=== PATIENT | female | born 1955 | race Caucasian/White ===

== ENCOUNTER 2016-10-19 20:44 | Emergency (ER) | payer BC, OTHER ==
[2016-10-19] MEDS ORDERED: Sodium Chloride 0.9% 1,000 ML IV ONE (21:51)
[2016-10-19 22:49] LABS: SODIUM,NA 136 mmol/L (135-145)
[2016-10-19 22:50] LABS: CHLORIDE,CL 103 mmol/L (101-111)
--- NOTE | 2016-10-20 00:02 | EDM.PDOC ---
ED HPI GENERAL MEDICAL PROBLEM - General Chief Complaint: General Stated Complaint: ACHY,CHILLS, [id number] Time Seen by Provider: 10/19/16 22:39 Source of Information: Reports: Patient History Limitations: Reports: No Limitations - History of Present Illness INITIAL COMMENTS - FREE TEXT/NARRATIVE: upper body feels cold and achy today, has felt this way when started on blood thinners, has hx kidney disease . Blood thinners to prevent CCVA Quality: Reports: Ache, Stabbing, Throbbing Improves with: Reports: None Worsens with: Reports: None Associated Symptoms: Denies: Cough, Headaches, Loss of Appetite, Nausea/Vomiting Chest Pain Score (Numeric/FACES): 6 - Related Data Allergies Allergy/AdvReac Type Severity Reaction Status Date / Time No Known Allergies Allergy Verified 10/19/16 21:16 Home Meds: Home Meds Cholecalciferol (Vitamin D3) [D3-2000] 2,000 units PO ASDIRECTED 10/19/16 [ History] Ezetimibe [Zetia] 5 mg PO DAILY 10/19/16 [History] Levothyroxine [Synthroid] 50 mcg PO DAILY 10/19/16 [History] Lisinopril [Zestril] 20 mg PO DAILY 10/19/16 [History] Mycophenolate Mofetil [Cellcept] 1,000 mg PO BID 10/19/16 [History] Warfarin [Coumadin] 5 mg PO DAILY 10/19/16 [History] atorvaSTATin [Lipitor] 40 mg PO DAILY 10/19/16 [History] Past Medical History HEENT History: Reports: Cataract Cardiovascular History: Reports: High Cholesterol, Hypertension Genitourinary History: Reports: UTI, Recurrent Other Genitourinary History: Kidney disease. 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 ED EXAM, GENERAL - Physical Exam Exam: See Below Exam Limited By: No Limitations General Appearance: Alert, No Apparent Distress Ears: Normal External Exam, Normal TMs Nose: Normal Inspection Throat/Mouth: Normal Oropharynx Head: Atraumatic, Normocephalic Neck: Normal Inspection, Supple, Non-Tender, Limited Range of Motion Respiratory/Chest: No Respiratory Distress, Lungs Clear, No Accessory Muscle Use , Respiratory Distress Cardiovascular: Normal Peripheral Pulses, Regular Rate, Rhythm, JVD GI/Abdominal: Normal Bowel Sounds (Female) Exam: Normal External Exam Rectal (Female) Exam: Normal Exam Back Exam: Normal Inspection Extremities: Normal Inspection Neurological: Alert Psychiatric: Normal Affect Skin Exam: Warm, Dry, Intact, Normal Color, No Rash Course - Vital Signs Last Recorded V/S: Last Vital Signs Temp 100.2 F 10/20/16 00:20 Pulse 78 10/20/16 00:20 Resp 14 10/20/16 00:20 BP 128/60 10/20/16 00:20 Pulse Ox 95 10/20/16 00:20 - Orders/Labs/Meds Labs: Laboratory Tests 10/19/16 10/19/16 10/19/16 Range/Units 21:30 21:50 21:50 WBC 8.1 (5.0-10.0) 10^3/uL RBC 4.14 L (4.2-5.4) 10^6/uL Hgb 12.9 (12.0-16.0) g/dL Hct 37.8 (37.0-47.0) % MCV 91.3 (80-100) fL MCH 31.2 (27.0-34.0) pg MCHC 34.1 (33.0-35.0) g/dL Plt Count 199 (150-450) 10^3/uL Neut % (Auto) 85.6 H (42.2-75.2) % Lymph % (Auto) 6.1 L (20.5-50.1) % Lamb % (Auto) 7.1 (2-8) % Eos % (Auto) 1.0 (1.0-3.0) % Baso % (Auto) 0.2 (0.0-1.0) % PT 12.5 H (9.0-12.0) SEC INR 1.2 (0.9-1.2) Sodium (135-145) mmol/L Potassium (3.6-5.0) mmol/L Chloride (101-111) mmol/L Carbon Dioxide (21.0-31.0) mmol/L Anion Gap BUN (7-18) mg/dL Creatinine (0.6-1.3) mg/dL Est Cr Clr Drug Dosing mL/min Estimated GFR (MDRD) BUN/Creatinine Ratio Glucose (74-105) mg/dL Calcium (8.4-10.2) mg/dl Total Bilirubin (0.2-1.0) mg/dL AST (10-42) IU/L ALT (10-60) IU/L Alkaline Phosphatase (42-121) IU/L Troponin I (0.00-0.02) ng/ml C-Reactive Protein (0.0-1.3) mg/dL Total Protein (6.7-8.2) g/dl Albumin (3.2-5.5) g/dl Globulin Albumin/Globulin Ratio Urine Color Yellow (YELLOW) Urine Appearance Slightly cloudy (CLEAR) Urine pH 5.5 (5.0-9.0) Ur Specific [place] 1.010 (1.005-1.030) Urine Protein 100 H (NEGATIVE) Urine Glucose (UA) Negative (NEGATIVE) Urine Ketones Negative (NEGATIVE) Urine Occult Blood Trace-lysed H (NEGATIVE) Urine Nitrite Negative (NEGATIVE) Urine Bilirubin Negative (NEGATIVE) Urine Urobilinogen 0.2 (0.2-1.0) mg/dL Ur Leukocyte Esterase Negative (NEGATIVE) Urine RBC 0-5 /HPF Urine WBC 0-5 (0-5/HPF) /HPF Ur Epithelial Cells Rare /HPF Amorphous Sediment Rare (0/HPF) /HPF Urine Bacteria Rare (0-FEW/HPF) /HPF 10/19/16 10/19/16 Range/Units 21:50 21:50 WBC (5.0-10.0) 10^3/uL RBC (4.2-5.4) 10^6/uL Hgb (12.0-16.0) g/dL Hct (37.0-47.0) % MCV (80-100) fL MCH (27.0-34.0) pg MCHC (33.0-35.0) g/dL Plt Count (150-450) 10^3/uL Neut % (Auto) (42.2-75.2) % Lymph % (Auto) (20.5-50.1) % Lamb % (Auto) (2-8) % Eos % (Auto) (1.0-3.0) % Baso % (Auto) (0.0-1.0) % PT (9.0-12.0) SEC INR (0.9-1.2) Sodium 136 (135-145) mmol/L Potassium 3.3 L (3.6-5.0) mmol/L Chloride 103 (101-111) mmol/L Carbon Dioxide 23.0 (21.0-31.0) mmol/L Anion Gap 13.3 BUN 13 (7-18) mg/dL Creatinine 0.6 (0.6-1.3) mg/dL Est Cr Clr Drug Dosing 82.87 mL/min Estimated GFR (MDRD) > 60 BUN/Creatinine Ratio 21.66 Glucose 155 H (74-105) mg/dL Calcium 8.4 (8.4-10.2) mg/dl Total Bilirubin 1.3 H (0.2-1.0) mg/dL AST 26 (10-42) IU/L ALT 21 (10-60) IU/L Alkaline Phosphatase 61 (42-121) IU/L Troponin I < 0.02 (0.00-0.02) ng/ml C-Reactive Protein 1.0 (0.0-1.3) mg/dL Total Protein 5.9 L (6.7-8.2) g/dl Albumin 2.9 L (3.2-5.5) g/dl Globulin 3.0 Albumin/Globulin Ratio 0.97 Urine Color (YELLOW) Urine Appearance (CLEAR) Urine pH (5.0-9.0) Ur Specific [place] (1.005-1.030) Urine Protein (NEGATIVE) Urine Glucose (UA) (NEGATIVE) Urine Ketones (NEGATIVE) Urine Occult Blood (NEGATIVE) Urine Nitrite (NEGATIVE) Urine Bilirubin (NEGATIVE) Urine Urobilinogen (0.2-1.0) mg/dL Ur Leukocyte Esterase (NEGATIVE) Urine RBC /HPF Urine WBC (0-5/HPF) /HPF Ur Epithelial Cells /HPF Amorphous Sediment (0/HPF) /HPF Urine Bacteria (0-FEW/HPF) /HPF Meds: Medications Discontinued Medications Generic Name Dose Route Start Last Admin Trade Name Freq PRN Reason Stop Dose Admin Sodium Chloride 1,000 mls @ 999 mls/hr 10/19/16 21:51 10/19/16 21:53 Normal Saline IV 10/19/16 22:51 999 mls/hr .BOLUS ONE Administration Potassium Chloride Confirm 10/20/16 00:24 10/20/16 00:28 Klor-Con 10 Administered 10/20/16 00:25 Not Given Dose 20 meq .ROUTE .STK-MED ONE Departure - Departure Time of Disposition: 00:11 Disposition: Home, Self-Care 01 Condition: Good Clinical Impression: Myalgia, Hypokalemia, Subtherapeutic anticoagulation - Discharge Information Instructions: Hypokalemia, Muscle Cramps and Spasms Referrals: Elvin Gray MD [Primary Care Provider] - Forms: ED Department Discharge Additional Instructions: potassium 10Meq tonight and in am Fluids Additional 5 mg Coumadin tonight recheck INR in 2-3 days
[2016-10-20 00:21] VITALS: BP 128/60
[2016-10-20] MEDS ORDERED: Potassium Chloride 10 MEQ Tab.ER ONE (00:24)
[2016-10-20] MEDS ORDERED: Potassium Chloride 10 MEQ Tab.ER PO ONE (00:24)
== END 2016-10-20 00:33 | disposition home or self-care (01) ==
LOC: DL.ED 20:44
DX: M79.1 Myalgia (principal); E87.6 Hypokalemia; R79.1 Abnormal coagulation profile; E78.00 Pure hypercholesterolemia, unspecified; I10 Essential (primary) hypertension; N28.9 Disorder of kidney and ureter, unspecified; M79.7 Fibromyalgia; E03.9 Hypothyroidism, unspecified; Z79.01 Long term (current) use of anticoagulants; Z79.899 Other long term (current) drug therapy
CPT/HCPCS: 36415; 71010; 80053; 81001; 84484; 85025; 85610; 86140; 96365; 99284; J7030; A9270-GY

== ENCOUNTER 2018-07-04 15:20 | Emergency (ER) | payer BC ==
[2018-07-04 15:52] VITALS: BP 132/67
[2018-07-04 16:39] LABS: ANION GAP 8.5; CHLORIDE,CL 107 mmol/L (101-111); SODIUM,NA 137 mmol/L (135-145)
--- NOTE | 2018-07-04 16:44 | EDM.PDOC ---
<BulmaroMargarita Angel - Last Filed: 07/04/18 17:39> ED HPI GENERAL MEDICAL PROBLEM - General Chief Complaint: PASTRY COOK HELPER Problem Stated Complaint: BLEEDING [id number] Time Seen by Provider: 07/04/18 16:00 Source of Information: Reports: Patient, RN, RN Notes Reviewed - History of Present Illness INITIAL COMMENTS - FREE TEXT/NARRATIVE: Patient presents to the Emergency department with complaints of vaginal bleeding. She told her oncologist that she was having bleeding and was told to come to the emergency room. She has been having spotting for 3 weeks. She is certain the bleeding source is vaginally. She fills about half of a panty liner throughout a day. She has sharp lower abdomen pain when she is active and walking more that goes away after resting. She has a history of breast cancer and had radiation and lumpectomy in August 2016. She states she is cancer free. She takes Tamoxifen daily. She went throughout menopause at age 40. She has not had vaginal bleeding before 3 weeks ago. Last August she had a pap smear in the clinic and states it was insufficient sample. She was also told that her bladder has dropped. She has not had any bladder procedures. She has difficulty emptying her bladder. She denies urgency, frequency. She has chronic kidney disease and sees Dr. Vernon [facility]. Duration: Week(s): (3) Location: Reports: Abdomen (low abdomen pain) - Related Data Allergies Allergy/AdvReac Type Severity Reaction Status Date / Time aliskiren [From Tekturna] Allergy Other Verified 07/04/18 15:57 formaldehyde Allergy Headache Verified 07/04/18 15:57 losartan Allergy Other Verified 07/04/18 15:57 Home Meds: Home Meds Cholecalciferol (Vitamin D3) [D3-2000] 2,000 units PO .2 TIMES A WEEK 10/19/16 [ History] Ezetimibe [Zetia] 5 mg PO DAILY 10/19/16 [History] Levothyroxine [Synthroid] 50 mcg PO DAILY 10/19/16 [History] Lisinopril [Zestril] 20 mg PO DAILY 10/19/16 [History] Mycophenolate Mofetil [Cellcept] 1,000 mg PO BID 10/19/16 [History] Warfarin [Coumadin] 10 mg PO DAILY 10/19/16 [History] atorvaSTATin [Lipitor] 10 mg PO DAILY 10/19/16 [History] Tamoxifen [Nolvadex] 10 mg PO DAILY 07/04/18 [History] Past Medical History HEENT History: Reports: Cataract Cardiovascular History: Reports: Heart Murmur, High Cholesterol, Hypertension Respiratory History: Reports: None Gastrointestinal History: Reports: None Genitourinary History: Reports: Chronic Renal Insuffiency, UTI, Recurrent Other Genitourinary History: Kidney disease. 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: Musculoskeletal History: Reports: Fibromyalgia Neurological History: Reports: None, Concussion Psychiatric History: Reports: None Endocrine/Metabolic History: Reports: Hypothyroidism Hematologic History: Reports: None Immunologic History: Reports: None Oncologic (Cancer) History: Reports: Breast Dermatologic History: Reports: None - Infectious Disease History Infectious Disease History: Reports: None, Chicken Pox, Measles - Past Surgical History Head Surgeries/Procedures: Reports: None HEENT Surgical History: Reports: Cataract Surgery Other Cardiovascular Surgeries/Procedures: ecchogram GI Surgical History: Reports: None Female Surgical History: Reports: Other (See Below) Other Female Surgeries/Procedures: R) lumpectomy Social & Family History - Tobacco Use Smoking Status *Q: Never Smoker - Caffeine Use Caffeine Use: Reports: Coffee, Soda Caffeine Use Comment: 16 oz daily - Recreational Drug Use Recreational Drug Use: No - Living Situation & Occupation Living situation: Reports: ED ROS GENERAL - Review of Systems Review Of Systems: See Below Constitutional: Denies: Fever, Chills, Fatigue HEENT: Reports: No Symptoms Respiratory: Reports: No Symptoms Cardiovascular: Reports: No Symptoms. Denies: Lightheadedness Endocrine: Reports: No Symptoms GI/Abdominal: Reports: Abdominal Pain (ocassional sharp abdominal pain) : Reports: Urinary Retention (incomplete bladder empytying, vaginal spotting for 3 weeks) Musculoskeletal: Reports: No Symptoms Skin: Reports: No Symptoms Neurological: Reports: No Symptoms Psychiatric: Reports: No Symptoms Hematologic/Lymphatic: Denies: Anemia, Easy Bleeding, Easy Bruising Immunologic: Reports: No Symptoms ED EXAM, RENAL/ - Physical Exam Exam Limited By: No Limitations General Appearance: Alert, WD/WN, No Apparent Distress Eye Exam: Bilateral Eye: Normal Inspection, PERRL Ears: Normal External Exam, Normal Canal, Hearing Grossly Normal, Normal TMs Nose: Normal Inspection, Normal Mucosa, No Blood Throat/Mouth: Normal Inspection, Normal Lips, Normal Teeth, Normal Gums, Normal Oropharynx, Normal Voice, No Airway Compromise Head: Atraumatic, Normocephalic Neck: Normal Inspection, Supple, Non-Tender, Full Range of Motion Respiratory/Chest: No Respiratory Distress, Lungs Clear, Normal Breath Sounds, No Accessory Muscle Use, Chest Non-Tender Cardiovascular: Normal Peripheral Pulses, Regular Rate, Rhythm, No Edema, No Gallop, No JVD, No Rub, Systolic Murmur GI/Abdominal: Normal Bowel Sounds, Soft, Tender (on palpation of right lower abdomen) (Female) Exam: Normal External Exam, Vaginal Bleeding (scant amount of red blood on panty liner. Speculum exam deferred ) Rectal (Female) Exam: Deferred Back Exam: Normal Inspection, Full Range of Motion, NT Extremities: Normal Inspection, Normal Range of Motion, Non-Tender, Normal Capillary Refill, No Pedal Edema Neurological: Alert, Oriented, CN II-XII Intact, Normal Cognition, Normal Gait, Normal Reflexes, No Motor/Sensory Deficits Psychiatric: Normal Affect, Normal Mood Skin Exam: Warm, Dry, Intact, Normal Color, No Rash Lymphatic: No Adenopathy Course - Vital Signs Last Recorded V/S: Last Vital Signs Temp 36.8 C 07/04/18 15:48 Pulse 80 07/04/18 15:48 Resp 16 07/04/18 15:48 BP 132/67 07/04/18 15:48 Pulse Ox 96 07/04/18 15:48 - Orders/Labs/Meds Labs: Laboratory Tests 07/04/18 07/04/18 07/04/18 Range/Units 16:11 16:15 16:15 WBC 5.9 (5.0-10.0) 10^3/uL RBC 4.35 (4.2-5.4) 10^6/uL Hgb 13.6 (12.0-16.0) g/dL Hct 40.3 (37.0-47.0) % MCV 92.6 (80-100) fL MCH 31.3 (27.0-34.0) pg MCHC 33.7 (33.0-35.0) g/dL Plt Count 219 (150-450) 10^3/uL Neut % (Auto) 59.4 (42.2-75.2) % Lymph % (Auto) 28.5 (20.5-50.1) % [place] % (Auto) 9.7 H (2-8) % Eos % (Auto) 1.5 (1.0-3.0) % Baso % (Auto) 0.9 (0.0-1.0) % PT (9.0-12.0) SEC INR (0.9-1.2) Sodium 137 (135-145) mmol/L Potassium 3.5 L (3.6-5.0) mmol/L Chloride 107 (101-111) mmol/L Carbon Dioxide 25.0 (21.0-31.0) mmol/L Anion Gap 8.5 BUN 17 (7-18) mg/dL Creatinine 0.9 (0.6-1.3) mg/dL Est Cr Clr Drug Dosing 53.81 mL/min Estimated GFR (MDRD) > 60 BUN/Creatinine Ratio 18.88 Glucose 173 H (74-105) mg/dL Calcium 8.4 (8.4-10.2) mg/dl Total Bilirubin 0.9 (0.2-1.0) mg/dL AST 22 (10-42) IU/L ALT 18 (10-60) IU/L Alkaline Phosphatase 44 (42-121) IU/L Total Protein 6.0 L (6.7-8.2) g/dl Albumin 3.0 L (3.2-5.5) g/dl Globulin 3.0 Albumin/Globulin Ratio 1.00 TSH, Ultra Sensitive (0.45-5.33) uIu/mL Urine Color Yellow (YELLOW) Urine Appearance Slightly cloudy (CLEAR) Urine pH 5.0 (5.0-9.0) Ur Specific [place] >= 1.030 (1.005-1.030) Urine Protein >=300 H (NEGATIVE) Urine Glucose (UA) 100 H (NEGATIVE) Urine Ketones Trace H (NEGATIVE) Urine Occult Blood Small H (NEGATIVE) Urine Nitrite Negative (NEGATIVE) Urine Bilirubin Negative (NEGATIVE) Urine Urobilinogen 0.2 (0.2-1.0) mg/dL Ur Leukocyte Esterase Negative (NEGATIVE) Urine RBC 5-10 H /HPF Urine WBC 5-10 H (0-5/HPF) /HPF Ur Epithelial Cells Few /HPF Amorphous Sediment Occasional (0/HPF) /HPF Urine Bacteria Few (0-FEW/HPF) /HPF 07/04/18 07/04/18 Range/Units 16:15 16:15 WBC (5.0-10.0) 10^3/uL RBC (4.2-5.4) 10^6/uL Hgb (12.0-16.0) g/dL Hct (37.0-47.0) % MCV (80-100) fL MCH (27.0-34.0) pg MCHC (33.0-35.0) g/dL Plt Count (150-450) 10^3/uL Neut % (Auto) (42.2-75.2) % Lymph % (Auto) (20.5-50.1) % [place] % (Auto) (2-8) % Eos % (Auto) (1.0-3.0) % Baso % (Auto) (0.0-1.0) % PT 23.9 H D (9.0-12.0) SEC INR 2.5 H (0.9-1.2) Sodium (135-145) mmol/L Potassium (3.6-5.0) mmol/L Chloride (101-111) mmol/L Carbon Dioxide (21.0-31.0) mmol/L Anion Gap BUN (7-18) mg/dL Creatinine (0.6-1.3) mg/dL Est Cr Clr Drug Dosing mL/min Estimated GFR (MDRD) BUN/Creatinine Ratio Glucose (74-105) mg/dL Calcium (8.4-10.2) mg/dl Total Bilirubin (0.2-1.0) mg/dL AST (10-42) IU/L ALT (10-60) IU/L Alkaline Phosphatase (42-121) IU/L Total Protein (6.7-8.2) g/dl Albumin (3.2-5.5) g/dl Globulin Albumin/Globulin Ratio TSH, Ultra Sensitive 2.13 (0.45-5.33) uIu/mL Urine Color (YELLOW) Urine Appearance (CLEAR) Urine pH (5.0-9.0) Ur Specific [place] (1.005-1.030) Urine Protein (NEGATIVE) Urine Glucose (UA) (NEGATIVE) Urine Ketones (NEGATIVE) Urine Occult Blood (NEGATIVE) Urine Nitrite (NEGATIVE) Urine Bilirubin (NEGATIVE) Urine Urobilinogen (0.2-1.0) mg/dL Ur Leukocyte Esterase (NEGATIVE) Urine RBC /HPF Urine WBC (0-5/HPF) /HPF Ur Epithelial Cells /HPF Amorphous Sediment (0/HPF) /HPF Urine Bacteria (0-FEW/HPF) /HPF Departure - Departure Time of Disposition: 16:48 Disposition: Home, Self-Care 01 Condition: Good Clinical Impression: Postmenopausal vaginal bleeding - Discharge Information Instructions: Postmenopausal Bleeding, Lcko-ps-Hute Referrals: Ting Galvez NP [Primary Care Provider] - Forms: ED Department Discharge Additional Instructions: Call [facility] to make appointment with PA[employer] COOK HELPER Return to ED if symptoms worsen or new symptoms develop. - Assessment/Plan Assessment:: post menopausal vaginal bleeding Plan: Call [facility] to make appointment with PASTRY COOK HELPER Return to ED if symptoms worsen or new symptoms develop. <Gumaro Harper - Last Filed: 07/05/18 07:44> ED EXAM, RENAL/ - Physical Exam Exam: See Below Course - Re-Assessments/Exams Free Text/Narrative Re-Assessment/Exam: 07/04/18 I personally performed or re-performed the physical examination and medical decision making. I have verified all student documentation or findings, including history, physical exam and/or medical decision making. A CT scan of the head was completed for this patient after an order was placed incorrectly in her chart by myself. The order was not meant for this patient and the CT was completed prior to my identification of the error. This was plainly and clearly explained to the patient that this was not meant for her and I had accidently placed it on her chart despite that error her CT scan of the head no acute abnormality. Her urinalysis is unremarkable. Her hemoglobin is okay. Her INR is therapeutic at 2.5. The really could be multiple causes for her vaginal bleeding being postmenopausal. Could be related to the tamoxifen her Coumadin for multiple other pathologies. These need to be evaluated in the primary care center and does not need any urgent or emergent intervention at this time. Patient is comfortable with this plan and her questions are answered. If at any time she has a rather large amount of vaginal bleeding weakness dizziness lightheadedness chest pain she is to recheck in the emergency department at that time otherwise contact OB today for a follow-up for evaluation of the postmenopausal bleeding on anticoagulant therapy with a history of breast cancer. Patient is comfortable with this plan and her questions are answered.
== END 2018-07-04 16:40 | disposition home or self-care (01) ==
LOC: DL.ED 15:20
DX: N95.0 Postmenopausal bleeding (principal); E03.9 Hypothyroidism, unspecified; Z88.8 Allergy status to other drugs, medicaments and biological substances; Z79.899 Other long term (current) drug therapy; Z79.01 Long term (current) use of anticoagulants
CPT/HCPCS: 36415; 70450; 80053; 81001; 84443; 85025; 85610; 99283

== ENCOUNTER 2018-10-01 09:04 | Emergency (ER) | payer BC ==
--- NOTE | 2018-10-01 09:20 | EDM.PDOC ---
ED HPI GENERAL MEDICAL PROBLEM - General Chief Complaint: Genitourinary Problem Stated Complaint: BLADDER Time Seen by Provider: 10/01/18 09:20 Source of Information: Reports: Patient, Old Records, RN, RN Notes Reviewed History Limitations: Reports: No Limitations - History of Present Illness INITIAL COMMENTS - FREE TEXT/NARRATIVE: Pt presents to ER with c/o dysuria. Pt states that she had a vaginal hysterectomy at [facility] on 09/29/18 and was discharged 09/30/18. Pt states that since being home she has had dysuria, urinary frequency, and urgency. Pt states she has been taking Oxycodone but it has not been helping with the pain. Pt stated that before arrival she took a hydrocodone and 4 Tylenol 325mg. Pt rates pain at a 5/10. Admits to chills. Denies N/V, fever, or flank pain. 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) Pelvic Pain Score (Numeric/FACES): 5 - Related Data Allergies Allergy/AdvReac Type Severity Reaction Status Date / Time aliskiren [From Tekturna] Allergy Other Verified 10/01/18 09:19 formaldehyde Allergy Headache Verified 10/01/18 09:19 losartan Allergy Other Verified 10/01/18 09:19 Home Meds: Home Meds Cholecalciferol (Vitamin D3) [D3-2000] 2,000 units PO .2 TIMES A WEEK 10/19/16 [ History] Ezetimibe [Zetia] 5 mg PO DAILY 10/19/16 [History] Levothyroxine [Synthroid] 50 mcg PO DAILY 10/19/16 [History] Lisinopril [Zestril] 20 mg PO DAILY 10/19/16 [History] Mycophenolate Mofetil [Cellcept] 1,000 mg PO BID 10/19/16 [History] Warfarin [Coumadin] 10 mg PO DAILY 10/19/16 [History] atorvaSTATin [Lipitor] 10 mg PO DAILY 10/19/16 [History] Tamoxifen [Nolvadex] 10 mg PO DAILY 07/04/18 [History] Past Medical History HEENT History: Reports: Cataract Cardiovascular History: Reports: Heart Murmur, High Cholesterol, Hypertension Respiratory History: Reports: None Gastrointestinal History: Reports: None Genitourinary History: Reports: Chronic Renal Insuffiency, UTI, Recurrent Other Genitourinary History: Kidney disease. Membreness glumal nephritis [employer] OPERATOR History: Reports: Musculoskeletal History: Reports: Fibromyalgia Neurological History: Reports: None, Concussion Psychiatric History: Reports: None Endocrine/Metabolic History: Reports: Hypothyroidism Hematologic History: Reports: None Immunologic History: Reports: None Oncologic (Cancer) History: Reports: Breast Dermatologic History: Reports: None - Infectious Disease History Infectious Disease History: Reports: None, Chicken Pox, Measles - Past Surgical History Head Surgeries/Procedures: Reports: None HEENT Surgical History: Reports: Cataract Surgery Other Cardiovascular Surgeries/Procedures: ecchogram GI Surgical History: Reports: None Female Surgical History: Reports: Other (See Below) Other Female Surgeries/Procedures: R) lumpectomy Social & Family History - Family History Family Medical History: Noncontributory - Caffeine Use Caffeine Use: Reports: Coffee, Soda Caffeine Use Comment: 16 oz daily - Living Situation & Occupation Living situation: Reports: ED ROS GENERAL - Review of Systems Review Of Systems: ROS reveals no pertinent complaints other than HPI. ED EXAM, RENAL/ - Physical Exam Exam: See Below Exam Limited By: No Limitations General Appearance: Alert, WD/WN, No Apparent Distress Throat/Mouth: Normal Inspection, Normal Voice Head: Atraumatic, Normocephalic Neck: Normal Inspection Respiratory/Chest: No Respiratory Distress, Lungs Clear, Normal Breath Sounds, No Accessory Muscle Use, Chest Non-Tender Cardiovascular: Regular Rate, Rhythm GI/Abdominal: Normal Bowel Sounds, Soft, No Distention, No Abnormal Bruit, Tender (as expected for POD #2 s/p vaginal hysterectomy). No: Guarding, Rigid, Rebound (Female) Exam: Deferred Rectal (Female) Exam: Deferred Back Exam: Normal Inspection. No: CVA Tenderness (L), CVA Tenderness (R) Neurological: Alert, Oriented, No Motor/Sensory Deficits Psychiatric: Normal Mood Course - Vital Signs Last Recorded V/S: Last Vital Signs Temp 37.0 C 10/01/18 09:22 Pulse 87 10/01/18 09:22 Resp 16 10/01/18 09:22 BP 134/87 06/01/19 09:22 Pulse Ox 98 10/01/18 09:22 - Orders/Labs/Meds Orders: Active Orders 24 hr Category Date Time Status Phenazopyridine [Urinary Pain Relief] Med 10/01/18 09:46 Once 190 mg PO ONETIME ONE Labs: Laboratory Tests 10/01/18 Range/Units 09:07 Urine Color Yellow (YELLOW) Urine Appearance Slightly cloudy (CLEAR) Urine pH 7.0 (5.0-9.0) Ur Specific [place] 1.025 (1.005-1.030) Urine Protein >=300 H (NEGATIVE) Urine Glucose (UA) Negative (NEGATIVE) Urine Ketones Negative (NEGATIVE) Urine Occult Blood Small H (NEGATIVE) Urine Nitrite Negative (NEGATIVE) Urine Bilirubin Negative (NEGATIVE) Urine Urobilinogen 0.2 (0.2-1.0) mg/dL Ur Leukocyte Esterase Negative (NEGATIVE) Urine RBC 5-10 H /HPF Urine WBC 0-5 (0-5/HPF) /HPF Ur Epithelial Cells Moderate H (NOT SEEN) /HPF Urine Bacteria Rare (0-FEW/HPF) /HPF Hyaline Casts Few H (NOT SEEN) /LPF Urine Mucus Few H (NOT SEEN) /LPF Departure - Departure Time of Disposition: 09:46 Disposition: Home, Self-Care 01 Condition: Good Clinical Impression: Dysuria, Postoperative lower abdominal pain - Discharge Information *PRESCRIPTION DRUG MONITORING PROGRAM REVIEWED*: No *COPY OF PRESCRIPTION DRUG MONITORING REPORT IN PATIENT [place]: No Instructions: Dysuria Forms: ED Department Discharge Additional Instructions: Rx: Pyridium 200mg *Turns urine orange. Follow up in clinic if not improving in 3 to 4 days. - My Orders Last 24 Hours: My Active Orders 10/01/18 09:46 Phenazopyridine [Urinary Pain Relief] 190 mg PO ONETIME ONE - Assessment/Plan Last 24 Hours: My Active Orders 10/01/18 09:46 Phenazopyridine [Urinary Pain Relief] 190 mg PO ONETIME ONE
[2018-10-01 09:30] VITALS: BP 134/87
[2018-10-01] MEDS ORDERED: Phenazopyridine 95 MG Tab PO ONE (09:46)
== END 2018-10-01 09:58 | disposition home or self-care (01) ==
LOC: DL.ED 09:04
DX: G89.18 Other acute postprocedural pain (principal); R10.30 Lower abdominal pain, unspecified; R30.0 Dysuria; E78.00 Pure hypercholesterolemia, unspecified; N18.9 Chronic kidney disease, unspecified; I12.9 Hypertensive chronic kidney disease with stage 1 through stage 4 chronic kidney disease, or unspecified chronic kidney disease; E03.9 Hypothyroidism, unspecified; Z88.8 Allergy status to other drugs, medicaments and biological substances; Z79.899 Other long term (current) drug therapy; Z90.710 Acquired absence of both cervix and uterus
CPT/HCPCS: 81001; 99283; A9270

== ENCOUNTER 2023-08-30 06:01 | Day surgery (SDC) | payer MEDICARE, BC ==
[2023-08-30] MEDS ORDERED: Midazolam 1 MG/ML 2 ML SDV ONE (06:10)
[2023-08-30] MEDS ORDERED: fentaNYL 100 MCG/2 ML SDV ONE (06:10)
[2023-08-30] MEDS: Dextrose 5%-0.45% NaCl 1,000 ML IV SCH (06:22)
[2023-08-30] MEDS: fentaNYL 100 MCG/2 ML SDV IV ONE ×3 (07:12→07:30)
[2023-08-30] MEDS: Midazolam 1 MG/ML 2 ML SDV IV ONE ×6 (07:13→07:24)
[2023-08-30 09:11] VITALS: BP 117/70; PULSE 63
== END 2023-08-30 09:15 | disposition home or self-care (01) ==
LOC: DL.ENDO 06:01
PROVIDERS: ATTEND Internal Medicine Gastroenterology
DX: K63.89 Other specified diseases of intestine (principal); I12.9 Hypertensive chronic kidney disease with stage 1 through stage 4 chronic kidney disease, or unspecified chronic kidney disease; N18.9 Chronic kidney disease, unspecified; E03.9 Hypothyroidism, unspecified; R19.7 Diarrhea, unspecified; Z98.890 Other specified postprocedural states; Z79.890 Hormone replacement therapy
CPT/HCPCS: 45380; 88305; J2250; J3010; J7042

== ENCOUNTER 2023-12-11 17:37 | Emergency (ER) | payer MEDICARE, BC ==
[2023-12-11 18:06] LABS: BASOPHILS PERCENT AUTO 0.3 % (0.0-1.0); EOSINOPHILS PERCENT AUTO 0.8 % (1.0-3.0); HEMOGLOBIN 13.4 g/dL (12.0-16.0); LYMPHOCYTES PERCENT AUTO 15.6 % (20.5-50.1); MEAN CORPUSCULAR HEMOGLOBIN 31.8 pg (27.0-34.0); MEAN CORPUSCULAR HGB CONC 33.5 g/dL (33.0-35.0); MONOCYTES PERCENT AUTO 6.3 % (2-8); PLATELET COUNT,PLT 207 10^3/uL (150-450); RED BLOOD CELL COUNT 4.21 10^6/uL (4.2-5.4); WHITE BLOOD CELL COUNT,WBC 9.9 10^3/uL (5.0-10.0)
[2023-12-11 18:07] VITALS: BP 124/75; PULSE 66
[2023-12-11 18:18] LABS: A/G RATIO 0.84; ALBUMIN 2.7 g/dL (3.4-5.0); ANION GAP 12.1 mEq/L (7-13); BILIRUBIN TOTAL 0.6 mg/dL (0.2-1.0); BUN/CREATININE RATIO 28.4 (No establ ref range); CALCIUM 8.6 mg/dL (8.5-10.1); CREATININE 0.74 mg/dL (0.55-1.02); EST CRCL DRUG DOSING (CG) 58.52 mL/min; POTASSIUM,K 4.1 mmol/L (3.5-5.1); PROTEIN TOTAL,TP 5.9 g/dL (6.4-8.2)
[2023-12-11 19:12] LABS: INR 2.2 (0.9-1.2); PROTHROMBIN TIME 21.7 SEC (9.0-12.0)
== END 2023-12-11 19:34 | disposition home or self-care (01) ==
LOC: DL.ED 17:37
DX: U07.1 COVID-19 (principal); I10 Essential (primary) hypertension; E78.00 Pure hypercholesterolemia, unspecified; E03.9 Hypothyroidism, unspecified; Z88.8 Allergy status to other drugs, medicaments and biological substances; Z91.048 Other nonmedicinal substance allergy status; Z79.890 Hormone replacement therapy; Z79.01 Long term (current) use of anticoagulants; Z79.899 Other long term (current) drug therapy; Z86.16 Personal history of COVID-19; Z90.710 Acquired absence of both cervix and uterus
CPT/HCPCS: 36415; 71045; 80053; 83690; 84484; 85025; 85610; 87804; 99285; U0002